=== PATIENT | female | born 1965 | race Asian ===

== ENCOUNTER 2017-01-21 10:17 | Emergency (ER) | payer OTHER ==
[~2017-01-21] VITALS: Ht 162.6 cm; Wt 65.0 kg
[2017-01-21 10:42] LABS: UA SPECIFIC GRAVITY <=1.005 (1.005-1.035); microscopic required? YES; urine erythrocyte TRACE (NEGATIVE)
[2017-01-21 10:43] LABS: BASOPHIL % 1.3 % (0-2); PLATELET COUNT 355 x10^3mcL (130-400); RED CELL DISTRIBUTION WIDTH 13.1 % (11.5-14.5)
[2017-01-21 10:57] LABS: CALCIUM 9.5 mg/dL (8.5-10.1); CARBON DIOXIDE 29.8 mmol/L (21-32); CHLORIDE SERUM 102 mmol/L (98-107); GFR1 > 60 mL/min; GLUCOSE SERUM 92 mg/dL (74-106); POTASSIUM SERUM 3.7 mmol/L (3.5-5.1); SODIUM SERUM 139 mmol/L (136-145)
[2017-01-21 11:10] LABS: ALBUMIN 4.1 g/dL (3.4-5.0); ALKALINE PHOSPHATASE 73 U/L (46-116); ALT/SGPT 40 U/L (14-59); AMYLASE 39 U/L (25-115); AST/SGOT 17 U/L (15-37); BILIRUBIN TOTAL 1.39 mg/dL (0.20-1.00); LIPASE 175 IU/L (73-393); T4(THYROXINE) 11.2 ug/dL (4.7-13.3); TOTAL PROTEIN, SERUM 7.6 g/dL (6.4-8.2)
[2017-01-21 11:16] LABS: CHOLESTEROL 249 mg/dL (<200); HDL CHOLESTEROL 75 mg/dL (40-60)
[2017-01-21 11:39] LABS: ERYTHROCYTE SED RATE 13 mm/hr (0-20)
[2017-01-21 12:09] LABS: C REACTIVE PROTEIN 0.2 mg/dL (<=0.9)
[2017-01-21 17:21] VITALS: BP 120/82
== END 2017-01-21 17:21 | disposition home or self-care (01) ==
LOC: ED 10:17
PROVIDERS: Emergency Medicine
DX: T78.3XXA Angioneurotic edema, initial encounter (principal); E78.00 Pure hypercholesterolemia, unspecified; J45.909 Unspecified asthma, uncomplicated; X58.XXXA Exposure to other specified factors, initial encounter; Z88.0 Allergy status to penicillin
CPT/HCPCS: 83880; J3490; J7030